=== PATIENT | female | born 2000 | race Caucasian/White ===

== ENCOUNTER 2024-04-07 12:37 | Outpatient (CLI) | payer BC | END 2024-04-07 12:38 | disposition home or self-care (01) | LOC: CSHULT 12:37 | PROVIDERS: ATTEND Family Medicine | DX: R10.2 Pelvic and perineal pain (principal) | CPT/HCPCS: 76856 ==

== ENCOUNTER 2024-10-01 10:08 | Day surgery (SDC) | payer BC ==
[2024-10-01] MEDS ORDERED: hydrALAZINE 20 MG/ML VIAL SLOW IVP PRN ×2 (10:38→11:52)
== END 2024-10-01 11:20 | disposition home or self-care (01) ==
LOC: CSHLD/OP 10:08
PROVIDERS: ATTEND Obstetrics & Gynecology
DX: O36.8120 Decreased fetal movements, second trimester, not applicable or unspecified (principal); Z3A.21 21 weeks gestation of pregnancy; Z79.899 Other long term (current) drug therapy
CPT/HCPCS: 99282